=== PATIENT | female | born 1980 | race African-American/Black ===

== ENCOUNTER 2021-11-15 19:35 | Emergency (ER) | payer OTHER, SELFPAY ==
[2021-11-15 19:43] VITALS: BP 138/74; PULSE 80; RESP 16; TEMP 36.2; O2SAT 98
--- NOTE | 2021-11-15 19:43 | ED.URI ---
HPI - URI/Sore Throat General Chief Complaint: Upper Respiratory Infection Stated Complaint: uri Time Seen by Provider: 11/15/21 19:43 Source: patient Mode of arrival: ambulatory Limitations: no limitations History of Present Illness HPI Narrative: 41-year-old female presents with complaint of sinus congestion, sinus pressure, nose is stopped up, postnasal drainage and scratchy throat for 3 to 4 days. Denies fever chills. Has a history of sinus issues. Has an ENT specialist plans to do surgery on nasal turbinates. Does take Singulair daily. All systems reviewed and negative except as noted as above. Related Data Home Medications Medication Instructions Recorded Confirmed amlodipine 11/15/21 citalopram mg 11/15/21 montelukast mg 11/15/21 Allergies Allergy/AdvReac Type Severity Reaction Status Date / Time No Known Allergies Allergy Unverified 05/15/21 08:45 Review of Systems Review of Systems: CONSTITUTIONAL: Denies fever, chills, or sweats. EYES: Denies visual changes, redness, or discharge. ENT: Reports rhinorrhea, congestion, sore throat. Denies otalgia. CARDIOVASCULAR: Denies chest pain, palpitations, or edema. RESPIRATORY: Denies cough or dyspnea. GASTROINTESTINAL: Denies abdominal pain, nausea, vomiting, or diarrhea. GENITOURINARY: Denies dysuria or hematuria. SKIN: Denies rash or itching. MUSCULOSKELETAL: Denies back pain, joint pain, or myalgia. NEUROLOGIC: Denies headache, numbness, or weakness. PSYCHIATRIC: Denies anxiety or depression. All other systems reviewed are negative, except as documented in HPI. PMFSH Comments At time of signature, agree with nursing past medical, surgical, social and family history. There is no relevant family history pertinent to the presenting complaint. Exam Narrative: GENERAL: This is a well-nourished, well-developed patient, in no apparent distress. HEAD: normocephalic, atraumatic. EYES: PERRL. Sclera clear/white. Vision is grossly intact. EARS: External ears normal, auditory canals clear and without drainage, TMs normal without perforation. Hearing grossly intact. NOSE: External nose normal with clear drainage to nares with erythema. Nasal turbinates are completely swollen and closed off. THROAT: Mucous membranes moist, mild erythema to posterior pharynx with clear postnasal drainage. NECK: Neck supple, non-tender without lymphadenopathy, masses or thyromegaly. CARDIOVASCULAR: Regular rate and rhythm without murmurs, gallops, or rubs. RESPIRATORY: Clear to auscultation. Breath sounds equal bilaterally. No wheezes, rales, or rhonchi. SKIN: warm, Dry, intact with no suspicious lesions or rash, good texture and turgor. NEURO: awake, alert, and oriented to person, place and time. There were no obvious focal neurologic abnormalities. EXTREMITIES: Normal range of motion to all extremities. Course Course Level of Care: Express Care Visit Vital Signs Vital signs: Vital Signs Temperature 36.2 C L 11/15/21 19:43 Pulse Rate 80 11/15/21 19:43 Respiratory Rate 16 11/15/21 19:43 Blood Pressure 138/74 11/15/21 19:43 Pulse Oximetry 98 11/15/21 19:43 Temperature 36.2 C L 11/15/21 19:43 Pulse Rate 80 11/15/21 19:43 Respiratory Rate 16 11/15/21 19:43 Blood Pressure 138/74 11/15/21 19:43 Pulse Oximetry 98 11/15/21 19:43 Reviewed MDM - URI/Sore Throat MDM Narrative Medical decision making narrative: Patient is aware of diagnosis, understands and agrees to treatment plan. Anticipatory guidance given. Patient agrees to follow-up as directed and is aware of reasons to seek care at the emergency department. Portions of this record may have been created with voice recognition software Will prescribe antibiotic today due to recurrent sinus issues, swelling and occlusion of nasal turbinates. Differential Diagnosis Differential diagnosis: Likely upper respiratory infection, sinusitis and viral infection Discharge Plan Discharge Clinical
== END 2021-11-15 19:58 | disposition home or self-care (01) ==
PROVIDERS: Emergency Provider Nurse Practitioner Family; PCP Internal Medicine
DX: J01.90 Acute sinusitis, unspecified (principal); I10 Essential (primary) hypertension
CPT/HCPCS: 99213; G0463